=== PATIENT | male | born 1985 | race Caucasian/White ===

== ENCOUNTER 2018-07-16 15:07 | Inpatient (IN) | payer BC ==
[~2018-07-16] VITALS: Ht 170.2 cm; Wt 97.5 kg
--- OUTSIDE RECORDS SUMMARY | 2018-07-16 15:08 | XMS REPORT ---
Author [facility] Address Unknown Phone Unavailable Care Team Providers Care Automobile Detailer Name Role Phone Cheyenne NINA Unavailable Unavailable Problems This patient has no known problems. Allergies, Adverse Reactions, Alerts This patient has no known allergies or adverse reactions. Medications This patient has no known medications. Results Test Description Test Time Test Comments Text Results Atomic Results Result Comments CT ABDOMEN/PELVIS W [place] [id number] Patient Name: HARRISON RIOJAS MR #: [id number] : 1985 Age/Sex: 32/M Req #: [id number] Adm Physician: Ordered by: JAMES HARRIS Report #: [id number] Location: ER Room/Bed: Procedure: [id number] CT/CT ABDOMEN/PELVIS W Exam Date: Exam Time: REPORT STATUS: Signed EXAM: CT ABDOMEN/PELVIS W DATE: 04/20/2017 8:38 PM INDICATION: Pain COMPARISON: None TECHNIQUE: The abdomen and pelvis were scanned using a multidetector helical scanner. Coronal and sagittal reformations were obtained. Routine protocol performed. IV Contrast: 100 ml Isovue 370 FINDINGS: LOWER THORAX: No consolidations LIVER/BILIARY: Hepatic steatosis. No ductal dilatation. GALLBLADDER/SPLEEN/PANCREAS: Unremarkable ADRENALS: No nodules KIDNEYS: Symmetric perfusion. No enhancing masses. No hydronephrosis. GI TRACT: No distention, wall thickening or evidence of obstruction. Normal appendix. VESSELS: Unremarkable PERITONEUM/RETROPERITONEUM: No free air or fluid LYMPH NODES: No lymphadenopathy REPRODUCTIVE ORGANS/BLADDER: Unremarkable SOFT TISSUES: Unremarkable BONES: No suspicious bone lesions. IMPRESSION: No acute abnormality. Signed by: Dr Stella Garcia MD on 04/20/2017 10:32 PM Dictated By: STELLA GARCIA MD 31 Transcribed By: MARCE on 04/20/172231 COPY TO: JAMES HARRIS CHEST SINGLE (NOT PORTABLE) [place] [address] Patient Name: HARRISON RIOJAS MR #: [id number] : 1985 Age/Sex: 32/M Req #: [id number] Adm Physician: Ordered by: MANDA KEN MD Report #: [id number] Location: ER Room/Bed: Procedure: [id number] DX/CHEST SINGLE (NOT PORTABLE) Exam Date: 04/20/17 Exam Time: 1811 REPORT STATUS: Signed PROCEDURE: A single AP view of the chest. COMPARISON: [facility], DX, CHEST SINGLE, 09/15/2008, 2:28. INDICATIONS: SHORT OF BREATH FINDINGS: Lines/tubes: None. Lungs: 1.0 cm nodular density with central lucency projected on the right lung base laterally. A similar nodular density also projected on the right mid lung and right apex. There is no evidence of pneumonia or pulmonary edema. Pleura: There is no pleural effusion or pneumothorax. Heart and mediastinum: The heart and the mediastinum are unremarkable. Bones: No acute bony abnormality. IMPRESSION: 1. No acute cardiopulmonary disease. 2. 3 similar appearing nodular densities with central lucency projected on the right lung may represent artifact. Recommend further evaluation with lateral view, or if warranted, CT chest to exclude cavitating nodules. Marita Valle M.D. Dictated by: Marita Valle M.D. on 04/20/2017 at 18:43 Electronically approved by: Marita Valle M.D. on 04/20/2017 at 18:43 Dictated By: JUAN VALLE MD, MD 42 Transcribed By: SEEMA on 04/20/171842 COPY TO: MANDA KEN MD
[2018-07-16] MEDS ORDERED: SODIUM CHLORIDE 0.9% 1000ML 1,000 ML IV STA (15:40)
[2018-07-16] MEDS ORDERED: FENTANYL CITRATE/PF 100MCG/2 ML INJ IV NR (15:45)
[2018-07-16] MEDS ORDERED: SODIUM CHLORIDE 0.9% 1000ML 1,000 ML IV SCH ×2 (15:45→18:47)
[2018-07-16] MEDS ORDERED: ONDANSETRON HCL INJ 2 MG/ML VIAL IV NR (16:00)
[2018-07-16 16:54] LABS: BASOPHILS # (AUTO) 0.1 (0.0-0.1); BASOPHILS % 0.2 % (0.0-1.0); HEMATOCRIT 45.3 % (38.2-49.6); HEMOGLOBIN 15.8 g/dL (14.0-18.0); LYMPHOCYTES # (AUTO) 0.7 (1.0-3.2); LYMPHOCYTES % 2.7 % (18.0-39.1); MEAN CORPUSCULAR HGB CONC 34.9 g/dL (31-35); MONOCYTES # (AUTO) 1.6 (0.2-0.8); MONOCYTES % 6.4 % (4.4-11.3); NEUTROPHILS # (AUTO) 22.3 (2.1-6.9); NEUTROPHILS % 89.6 % (38.7-80.0); PLATELET COUNT 164 x10e3/uL (140-360); RED BLOOD COUNT 5.09 x10e6/uL (4.3-5.7); RED CELL DISTRIBUTION WIDTH 13.3 % (11.7-14.4)
--- NOTE | 2018-07-16 17:05 | NUR ---
FENTANYL AND ZOFRAN HELD UNTIL ROOM IS AVAILABLE
[2018-07-16] MEDS ORDERED: SODIUM CHLORIDE 0.9% 50ML 50 ML ONE (17:13)
[2018-07-16] MEDS ORDERED: IOPAMIDOL 370 MG/ML 200 ML INFUS..BTL INJ ONE (17:13)
[2018-07-16 17:17] LABS: ALANINE AMINOTRANSFERASE 27 IU/L (0-55); ALBUMIN 3.8 g/dL (3.5-5.0); ALBUMIN/GLOBULIN RATIO 1.2 (0.8-2.0); ALKALINE PHOSPHATASE 64 IU/L (40-150); BLOOD UREA NITROGEN 12 mg/dL (7-26); BUN/CREATININE RATIO 13 (6-25); CARBON DIOXIDE 22 mmol/L (22-29); CHLORIDE 96 mmol/L (98-107); CREATININE, SERUM 0.93 mg/dL (0.72-1.25); EST GLOMERULAR FILTRATION RATE > 60 ML/MIN (60-); GLUCOSE 154 mg/dL (74-118); SODIUM 131 mmol/L (136-145)
[2018-07-16 17:29] LABS: MAGNESIUM 1.9 MG/DL (1.3-2.1)
[2018-07-16] MEDS ORDERED: PIPER-TAZ 3.375 GM 50 ML IV NR (17:30)
[2018-07-16 17:50] LABS: INR 1.13; PROTHROMBIN TIME 15.5 seconds (11.9-14.5)
[2018-07-16] MEDS ORDERED: DESFLURANE 240 ML BTL INH ONE (17:57)
[2018-07-16] MEDS ORDERED: GLYCOPYRROLATE INJ 1MG/ 5 ML SYR ONE (17:57)
[2018-07-16] MEDS ORDERED: ACETAMINOPHEN 1000 MG/100 ML IV ONE (17:57)
[2018-07-16] MEDS ORDERED: ONDANSETRON HCL INJ 2 MG/ML VIAL ONE (17:57)
[2018-07-16] MEDS ORDERED: NEOSTIGMINE 5 MG/5ML SYR ONE (17:57)
[2018-07-16] MEDS ORDERED: SUCCINYLCHOLINE 200 MG/10 ML SYR ONE (17:57)
[2018-07-16] MEDS ORDERED: DEXAMETHASONE SOD PHOS INJ 4 MG/ML VIAL ONE (17:57)
[2018-07-16] MEDS ORDERED: LIDOCAINE HCL 2% LOCAL INJ 5 ML SDV VIAL INJ ONE (17:57)
[2018-07-16] MEDS ORDERED: PROPOFOL IV EMULSION 10 MG/ML 20 ML VIAL ONE (17:57)
[2018-07-16] MEDS ORDERED: ROCURONIUM BROMIDE 10 MG/ML 5ML VIAL ONE (17:57)
[2018-07-16 18:22] LABS: CLARITY,URINE HAZY (CLEAR); COLOR,URINE AMBER (YELLOW)
[2018-07-16 18:23] LABS: BILIRUBIN,URINE 1+ (NEGATIVE); KETONES,URINE TRACE (NEGATIVE); LEUKOCYTE ESTERASE ,URINE NEGATIVE (NEGATIVE); NITRITE,URINE POSITIVE (NEGATIVE); PROTEIN,URINE DIPSTICK 2+ (NEGATIVE); URINE UROBILINOGEN 1 mg/dL (0.2 - 1)
[2018-07-16 18:28] LABS: BACTERIA,URINE MODERATE /HPF; RBC,URINE 0-5 /HPF (0-5)
[2018-07-16 18:29] LABS: EPITHELIAL CELLS,URINE FEW /LPF
--- NOTE | 2018-07-16 18:30 | Diagnostic Imaging Report ---
EXAM: CT Abdomen and Pelvis WITH contrast INDICATION: ^RLQ pain x 2 days. Concern for Appendicitis ^[id number] ^1747 COMPARISON: None. TECHNIQUE: Abdomen and pelvis were scanned utilizing a multidetector helical scanner from the lung base to the pubic symphysis after administration of IV contrast. Coronal and sagittal reformations were obtained. Routine protocol was performed. Scan was performed when during portal venous phase. IV CONTRAST: 100 mL of Isovue-370 ORAL CONTRAST: Water RADIATION DOSE: Total DLP: 727.5 mGy*cm Estimated effective dose: (DLP x 0.015 x size factor) mSv COMPLICATIONS: None FINDINGS: LINES and TUBES: None. LOWER THORAX: Unremarkable HEPATOBILIARY: No focal hepatic lesions. No biliary ductal dilation. GALLBLADDER: No radio-opaque stones or sludge. No wall thickening. SPLEEN: No splenomegaly. PANCREAS: No focal masses or ductal dilatation. ADRENALS: No adrenal nodules KIDNEYS/URETERS: Kidneys enhance symmetrically. No hydronephrosis. No cystic or solid mass lesions. No stones. GI TRACT: No abnormal distention, wall thickening, or evidence of bowel obstruction. The appendix is severely dilated, measuring 1.4 cm in diameter, filled with hyperdense material, and associated with wall enhancement and thickening. Extensive surrounding fat stranding with multiple air foci. No well-formed abscess or fluid collections. There is inflammatory changes of the adjacent small bowel. PELVIC ORGANS/BLADDER: Unremarkable. LYMPH NODES: No lymphadenopathy. VESSELS: Unremarkable. PERITONEUM / RETROPERITONEUM: No free air or fluid. BONES: Unremarkable. SOFT TISSUES: Unremarkable. IMPRESSION: Acute perforated appendicitis. No well formed abscess or surrounding fluid collections. These findings were communicated to Dr Roche on 07/16/2018 at 6:25 PM. Signed by: Dr. Shellie Barnes M.D. on 07/16/2018 6:26 PM
[2018-07-16 18:31] LABS: MUCUS,URINE MODERATE (RARE); TRANSITIONAL EPI CELLS,URINE FEW
--- NOTE | 2018-07-16 18:44 | NUR ---
MEDS GIVEN PER DR'S ORDERS AND PT HAS TOLERATED WELL
[2018-07-16 19:06] LABS: BAND NEUTROPHILS % (MANUAL) 3 %; LYMPHOCYTES % (MANUAL) 4 % (19-48); MONOCYTES % (MANUAL) 4 % (3.4-9.0); NEUTROPHILS % (MANUAL) 89 % (40-74)
[2018-07-16 19:07] LABS: PLATELET ESTIMATE ADEQUATE; PLATELET MORPHOLOGY COMMENT NORMAL; RBC MORPHOLOGY COMMENT NORMAL
[2018-07-16] MEDS ORDERED: FENTANYL CITRATE/PF 100MCG/2 ML INJ ONE (19:21)
[2018-07-16] MEDS ORDERED: MIDAZOLAM HCL 2 MG/2 ML VIAL ONE (19:22)
[2018-07-16] MEDS ORDERED: BUPIVACAINE 0.25%/EPI 30ML SDV INJ ONE (19:37)
--- NOTE | 2018-07-16 19:50 | NUR ---
OR TEAM IN ROOM WITH DR. BAE AT THIS TIME TO TAKE THE PT. TO THE O.R.
[2018-07-16] MEDS ORDERED: PIPER-TAZ 3.375 GM / NS 50ML IV SCH (22:00)
--- NOTE | 2018-07-16 22:14 | Operative Report ---
DATE OF PROCEDURE: July 16, 2018 PREOPERATIVE DIAGNOSIS: Ruptured appendicitis. POSTOPERATIVE DIAGNOSIS: Perforated retrocecal appendicitis. OPERATIVE PROCEDURE: Laparoscopy appendectomy. PROJECTION ENGINEER: None. ANESTHESIA: General endotracheal, Dr. Elliott. INDICATIONS FOR SURGERY: A 33-year-old male with 2-day history of pain in right lower quadrant with fevers and nausea, vomiting. CT scan showed evidence of appendicitis with rupture near the neck. Patient consented for laparoscopic appendectomy. Attendant risks discussed. PROCEDURE FINDINGS: Retrocecal perforated appendicitis near the neck. DESCRIPTION OF PROCEDURE: The patient brought to the OR intubated. Abdomen prepped with alcohol and draped in sterile fashion. Infraumbilical incision was made and a 12-mm port inserted. Insufflation begun under direct vision. Other port sites placed in the suprapubic, right upper quadrant, and right lower quadrant. The appendix was identified in the retrocecal area. During mobilization, there was evidence of perforation near the neck with spillage of fecal material. We proceeded to contain the perforation and contamination using Ray-Doni gauze and suctioning all fecal matter. The cecum was mobilized medially by dividing the white line of Toldt keeping in mind the terminal ileum and ileocecal bowel. Using the Endo DEVIKA stapler vascular load, the neck of the appendix was transected, flushed to the base of the cecum with 2 firings of the stapler to control the neck of the appendix. The appendix placed in Endopouch and retrieved out the peritoneal cavity. Copious saline was used for irrigation, Hemostasis achieved. A 19-Martiniquais Riaz drain placed in the retrocecal area and taken out through the suprapubic port site. All ports removed under direct vision. I failed to mention that the omentum was brought over to cover the retrocecal area and stitched in place with 3-0 Vicryl stitch. The fascia was then closed with 0-Vicryl. Skin closed with subcuticular stitch. Patient extubated, transported to the recovery room. Estimated blood loss was 20 mL. Job#: [id number] CQ
[2018-07-16 22:48] VITALS: BP 101/57
[2018-07-16] MEDS: LACTATED RINGER'S 1,000 ML IV SCH (23:15)
[2018-07-16] MEDS ORDERED: ACETAMINOPHEN 325 MG TAB PO PRN (23:15)
[2018-07-16] MEDS: PIPER-TAZ 3.375 GM / NS 50ML IV SCH (23:50)
[2018-07-16 23:53] VITALS: BP 101/57
--- NOTE | 2018-07-16 23:54 | Consultation ---
DATE OF CONSULTATION: July 16, 2018 CHIEF COMPLAINT: Abdominal pain. HISTORY OF PRESENT ILLNESS: This patient is 33-year-old male with 2-day history of pain in lower abdomen with nausea, vomiting, and fevers. No diarrhea. No previous episode. PAST MEDICAL HISTORY: Negative. PAST SURGICAL HISTORY: He has no previous surgery. ALLERGIES: He has no drugs allergy. SOCIAL HABITS: He does not smoke or drink. REVIEW OF SYSTEMS: No cough, chest pain, or shortness of breath. PHYSICAL EXAMINATION: VITAL SIGNS: Stable. Temperature 99.3. GENERAL: He is awake, alert, in moderate discomfort. HEENT: Sclerae anicteric. NECK: Supple. LUNGS: Clear. HEART: Regular rate and rhythm. ABDOMEN: Soft with tenderness and guarding in the right lower quadrant with rebound. LABORATORY DATA: White cell count is 24,000, hemoglobin of 15, creatinine of 0.9. CT of the abdomen showed acute perforated appendicitis. ASSESSMENT: Ruptured appendicitis. PLAN: Laparoscopic appendectomy. Attendant risks discussed. Job#: [id number]
[2018-07-17] VITALS (9 sets, daily range): BP systolic 88–133; BP diastolic 55–65
--- NOTE | 2018-07-17 00:16 | NUR ---
Received patient from OR to room 107 at 2234, following an lap appy. x4 trocar sites c/d/i, and tip drain intact. bazzi in place, draining dee urine. AAOX3, breathing even and unlabored on RA. pain to abd 3/10, denies need for pain medication at this time. IVF infusing @ 150 to right AC 18g . admission complete. Spoke to Dr. Bustos, new orders received and implemented. no needs voiced at this time. bed locked and in lowest position, call light within easy reach. will continue to monitor the patient closely.
[2018-07-17] MEDS: PIPER-TAZ 3.375 GM / NS 50ML IV SCH ×3 (05:03→18:00)
[2018-07-17] MEDS: LACTATED RINGER'S 1,000 ML IV SCH ×4 (05:03→21:05)
--- NOTE | 2018-07-17 06:30 | NUR ---
bazzi cath removed at this time, patient tolerated well. dtv
[2018-07-17] MEDS: MORPHINE SULFATE INJ 4 MG/ML INJ 1ML IV PRN ×3 (06:48→19:40)
--- NOTE | 2018-07-17 09:40 | NUR ---
MD Angie COLBERT INTO SEE PT, DISCUSSED POC, MADE AWARE OF LOW BP
--- NOTE | 2018-07-17 10:00 | NUR ---
PT OOB TO BR, VOIDED SMALL AMOUNT, CHELSIE NOTED TO BE LEAKING, DRESSING REMOVED AND NEW PRESSURE DRESSING APPLIED, PT TOLERATED WELL, PT C/O PAIN DUE TO CHELSIE PULLING ON HIME, CHELSIE SAFETY PINNED TO LINDSAY, CALL LIGHT WITHIN REACH Addendum: 07/17/18 at 1009 by Traci Chu RN BP RECHECKED 99/56, 100.1
[2018-07-17] MEDS: METRONIDAZOLE 500MG/NS 100ML 100 ML IV SCH ×2 (14:35→21:02)
--- NOTE | 2018-07-17 14:36 | NUR ---
WITH STANDBY ASSIST, PT AMBULATED TO BR, VOIDED 300ML, STANDBY ASSIST TO SIT ON SIDE OF BED, CALL LIGHT WITHIN REACH, FAMILY AT SIDE
[2018-07-17] MEDS: ONDANSETRON HCL INJ 2 MG/ML VIAL IV PRN ×2 (15:30→19:40)
--- NOTE | 2018-07-17 18:40 | NUR ---
AMBULATING IN HALLWAY, STEADY GAIT
--- NOTE | 2018-07-17 19:10 | NUR ---
WALKING ROUNDS PERFORMED, RECEIVED PT AMBULATING IN ROOM, PT IS AAOX3, RR EVEN AND NON-LABORED, ON RA. PT REPORTS AMBULATING INCREASING PT PAIN. LEFT PT SITTING ON SIDE OF BED, BED IN LOW LOCKED POSITION, SIDE RAILS UPX2, CALL LIGHT AND PHONE WITHIN REACH. FAMILY AT BEDSIDE.
--- NOTE | 2018-07-17 22:16 | NUR ---
PT AMBULATING IN HAMM WITH FAMILY AT SIDE. STEADY GAIT NOTED. PT AMBULATED 300FT.
[2018-07-18] VITALS (8 sets, daily range): BP systolic 103–141; BP diastolic 58–81
[2018-07-18] MEDS: PIPER-TAZ 3.375 GM / NS 50ML IV SCH ×5 (00:35→23:19)
[2018-07-18] MEDS: LACTATED RINGER'S 1,000 ML IV SCH ×4 (01:55→21:55)
[2018-07-18] MEDS: METRONIDAZOLE 500MG/NS 100ML 100 ML IV SCH ×4 (02:48→20:26)
[2018-07-18] MEDS: ONDANSETRON HCL INJ 2 MG/ML VIAL IV PRN (02:59)
[2018-07-18] MEDS: MORPHINE SULFATE INJ 4 MG/ML INJ 1ML IV PRN (02:59)
[2018-07-18 06:00] LABS: BASOPHILS % 0.2 % (0.0-1.0); EOSINOPHILS # (AUTO) 0.1 (0.0-0.4); EOSINOPHILS % 0.4 % (0.0-6.0); HEMATOCRIT 35.2 % (38.2-49.6); HEMOGLOBIN 11.9 g/dL (14.0-18.0); LYMPHOCYTES # (AUTO) 1.3 (1.0-3.2); LYMPHOCYTES % 11.2 % (18.0-39.1); MEAN CORPUSCULAR HGB CONC 33.8 g/dL (31-35); MEAN CORPUSCULAR VOLUME 91.7 fL (81-99); MONOCYTES # (AUTO) 1.2 (0.2-0.8); MONOCYTES % 10.4 % (4.4-11.3); NEUTROPHILS # (AUTO) 9.2 (2.1-6.9); NEUTROPHILS % 77.3 % (38.7-80.0); PLATELET COUNT 149 x10e3/uL (140-360); RED BLOOD COUNT 3.84 x10e6/uL (4.3-5.7); RED CELL DISTRIBUTION WIDTH 13.6 % (11.7-14.4)
[2018-07-18 06:19] LABS: ANION GAP 12.1 mmol/L (8-16); BLOOD UREA NITROGEN 7 mg/dL (7-26); BUN/CREATININE RATIO 8 (6-25); CALCIUM 8.5 mg/dL (8.4-10.2); CARBON DIOXIDE 26 mmol/L (22-29); CHLORIDE 102 mmol/L (98-107); CREATININE, SERUM 0.92 mg/dL (0.72-1.25); EST GLOMERULAR FILTRATION RATE > 60 ML/MIN (60-); GLUCOSE 97 mg/dL (74-118); POTASSIUM 4.1 mmol/L (3.5-5.1); SODIUM 136 mmol/L (136-145)
--- NOTE | 2018-07-18 09:00 | NUR ---
AMBULATING IN HALLWAY, STEADY GAIT, FAMILY AT SIDE
[2018-07-18] MEDS: DOCUSATE SODIUM 100 MG CAP PO SCH ×2 (09:03→20:26)
--- NOTE | 2018-07-18 11:00 | NUR ---
NEW 20G TO LEFT HAND, PT TOLERATED WELL
--- NOTE | 2018-07-18 13:28 | NUR ---
AMBULATING IN HALLWAY, STEADY GAIT, FAMILY AT SIDE
[2018-07-18] MEDS: HYDROCODONE/APAP 7.5MG-325MG 1 EA TAB PO PRN ×2 (17:32→23:19)
--- NOTE | 2018-07-18 19:10 | NUR ---
WALKING ROUNDS PERFORMED, RECEIVED PT LAYING SEMI FOWLERS IN BED, AAOX3, RR EVEN AND NON-LABORED, ON RA. NO S/SX OF DISTRESS NOTED. LEFT PT LAYING SEMI FOWLERS IN BED, BED IN LOW LOCKED POSITION, SIDE RAILS UPX2, CALL LIGHT AND PHONE WITHIN REACH.
--- NOTE | 2018-07-18 20:00 | NUR ---
PT AMBULATING IN HAMM WITH FAMILY AT SIDE. STEADY GAIT NOTED.
[2018-07-19] VITALS (7 sets, daily range): BP systolic 124–144; BP diastolic 71–86
[2018-07-19] MEDS: LACTATED RINGER'S 1,000 ML IV SCH ×4 (02:00→21:18)
[2018-07-19] MEDS: METRONIDAZOLE 500MG/NS 100ML 100 ML IV SCH ×4 (02:54→20:45)
[2018-07-19 05:54] LABS: BASOPHILS % 0.4 % (0.0-1.0); EOSINOPHILS # (AUTO) 0.1 (0.0-0.4); EOSINOPHILS % 0.9 % (0.0-6.0); HEMATOCRIT 34.3 % (38.2-49.6); HEMOGLOBIN 11.7 g/dL (14.0-18.0); LYMPHOCYTES # (AUTO) 1.7 (1.0-3.2); LYMPHOCYTES % 16.4 % (18.0-39.1); MEAN CORPUSCULAR HEMOGLOBIN 30.7 pg (28-32); MEAN CORPUSCULAR HGB CONC 34.1 g/dL (31-35); MONOCYTES % 9.8 % (4.4-11.3); NEUTROPHILS # (AUTO) 7.3 (2.1-6.9); NEUTROPHILS % 71.7 % (38.7-80.0); PLATELET COUNT 167 x10e3/uL (140-360); RED BLOOD COUNT 3.81 x10e6/uL (4.3-5.7); RED CELL DISTRIBUTION WIDTH 13.5 % (11.7-14.4)
[2018-07-19] MEDS: PIPER-TAZ 3.375 GM / NS 50ML IV SCH ×4 (06:08→23:30)
[2018-07-19] MEDS: HYDROCODONE/APAP 7.5MG-325MG 1 EA TAB PO PRN ×4 (06:22→21:15)
[2018-07-19] MEDS: DOCUSATE SODIUM 100 MG CAP PO SCH ×2 (09:29→21:00)
[2018-07-19] MEDS: ONDANSETRON HCL INJ 2 MG/ML VIAL IV PRN (17:09)
[2018-07-20] VITALS (7 sets, daily range): BP systolic 123–144; BP diastolic 65–84
[2018-07-20] MEDS: METRONIDAZOLE 500MG/NS 100ML 100 ML IV SCH ×4 (02:15→21:00)
[2018-07-20] MEDS: HYDROCODONE/APAP 7.5MG-325MG 1 EA TAB PO PRN ×4 (03:00→23:43)
[2018-07-20] MEDS: PIPER-TAZ 3.375 GM / NS 50ML IV SCH ×4 (05:19→23:35)
[2018-07-20 05:54] LABS: BASOPHILS # (AUTO) 0.1 (0.0-0.1); BASOPHILS % 0.5 % (0.0-1.0); EOSINOPHILS # (AUTO) 0.2 (0.0-0.4); EOSINOPHILS % 1.4 % (0.0-6.0); HEMATOCRIT 35.8 % (38.2-49.6); HEMOGLOBIN 12.3 g/dL (14.0-18.0); LYMPHOCYTES # (AUTO) 2.4 (1.0-3.2); LYMPHOCYTES % 19.5 % (18.0-39.1); MEAN CORPUSCULAR HEMOGLOBIN 30.9 pg (28-32); MEAN CORPUSCULAR HGB CONC 34.4 g/dL (31-35); MEAN CORPUSCULAR VOLUME 89.9 fL (81-99); MONOCYTES # (AUTO) 1.3 (0.2-0.8); MONOCYTES % 10.6 % (4.4-11.3); NEUTROPHILS # (AUTO) 8.3 (2.1-6.9); NEUTROPHILS % 66.5 % (38.7-80.0); PLATELET COUNT 217 x10e3/uL (140-360); RED BLOOD COUNT 3.98 x10e6/uL (4.3-5.7); RED CELL DISTRIBUTION WIDTH 13.2 % (11.7-14.4)
[2018-07-20 06:16] LABS: ANION GAP 14.4 mmol/L (8-16); BLOOD UREA NITROGEN 6 mg/dL (7-26); BUN/CREATININE RATIO 7 (6-25); CALCIUM 8.5 mg/dL (8.4-10.2); CARBON DIOXIDE 25 mmol/L (22-29); CHLORIDE 99 mmol/L (98-107); CREATININE, SERUM 0.91 mg/dL (0.72-1.25); EST GLOMERULAR FILTRATION RATE > 60 ML/MIN (60-); GLUCOSE 85 mg/dL (74-118); POTASSIUM 3.4 mmol/L (3.5-5.1); SODIUM 135 mmol/L (136-145)
[2018-07-20] MEDS: DOCUSATE SODIUM 100 MG CAP PO SCH ×2 (07:54→21:00)
[2018-07-20 10:12] LABS: EOSINOPHILS % (MANUAL) 2 % (0-7); LYMPHOCYTES % (MANUAL) 17 % (19-48); METAMYELOCYTES % (MANUAL) 1 % (0-0); MONOCYTES % (MANUAL) 8 % (3.4-9.0); MYELOCYTES % (MANUAL) 1 % (0-0); NEUTROPHILS % (MANUAL) 64 % (40-74)
[2018-07-20 10:13] LABS: PLATELET ESTIMATE ADEQUATE; PLATELET MORPHOLOGY COMMENT NORMAL; RBC MORPHOLOGY COMMENT NORMAL
[2018-07-20] MEDS ORDERED: POTASSIUM CHLORIDE 10MEQ EA PO ONE (11:00)
[2018-07-20] MEDS: LACTATED RINGER'S 1,000 ML IV SCH (13:39)
[2018-07-21 00:25] VITALS: BP 141/79
[2018-07-21] MEDS: METRONIDAZOLE 500MG/NS 100ML 100 ML IV SCH ×2 (02:44→09:32)
[2018-07-21 04:00] VITALS: BP_SYST 142; BP_SYST 175; BP_DIAS 74; BP_DIAS 92
[2018-07-21 06:05] LABS: BASOPHILS # (AUTO) 0.1 (0.0-0.1); BASOPHILS % 0.7 % (0.0-1.0); EOSINOPHILS # (AUTO) 0.2 (0.0-0.4); EOSINOPHILS % 1.5 % (0.0-6.0); HEMATOCRIT 37.2 % (38.2-49.6); HEMOGLOBIN 12.9 g/dL (14.0-18.0); LYMPHOCYTES % 16.4 % (18.0-39.1); MEAN CORPUSCULAR HEMOGLOBIN 30.4 pg (28-32); MEAN CORPUSCULAR HGB CONC 34.7 g/dL (31-35); MEAN CORPUSCULAR VOLUME 87.5 fL (81-99); MONOCYTES # (AUTO) 1.2 (0.2-0.8); MONOCYTES % 10.3 % (4.4-11.3); NEUTROPHILS # (AUTO) 8.2 (2.1-6.9); NEUTROPHILS % 67.6 % (38.7-80.0); PLATELET COUNT 242 x10e3/uL (140-360); RED BLOOD COUNT 4.25 x10e6/uL (4.3-5.7); RED CELL DISTRIBUTION WIDTH 13.2 % (11.7-14.4)
[2018-07-21] MEDS: PIPER-TAZ 3.375 GM / NS 50ML IV SCH (06:12)
[2018-07-21 06:26] LABS: ANION GAP 13.5 mmol/L (8-16); BLOOD UREA NITROGEN < 5 mg/dL (7-26); CALCIUM 8.3 mg/dL (8.4-10.2); CARBON DIOXIDE 24 mmol/L (22-29); CHLORIDE 102 mmol/L (98-107); CREATININE, SERUM 0.81 mg/dL (0.72-1.25); EST GLOMERULAR FILTRATION RATE > 60 ML/MIN (60-); GLUCOSE 94 mg/dL (74-118); POTASSIUM 3.5 mmol/L (3.5-5.1); SODIUM 136 mmol/L (136-145)
[2018-07-21 06:30] LABS: BUN/CREATININE RATIO 6 (6-25)
--- NOTE | 2018-07-21 07:02 | NUR ---
Received patient mid fowlers position, side rails upx2, call light within reach, family member at bedside. AAOx3 to time, person, place. Respirations even and unlabored. Instructed patient to use call light for assistance. Voiced understanding. Will continue to monitor.
[2018-07-21 08:56] VITALS: BP 142/83
[2018-07-21] MEDS: DOCUSATE SODIUM 100 MG CAP PO SCH (09:32)
[2018-07-21 09:35] VITALS: BP 142/83
[2018-07-21] MEDS: HYDROCODONE/APAP 7.5MG-325MG 1 EA TAB PO PRN (09:35)
[2018-07-21] MEDS ORDERED: METRONIDAZOLE500 MG PO (11:06)
[2018-07-21] MEDS ORDERED: AUGMENTIN 875-1 EACH PO (11:06)
--- NOTE | 2018-07-21 11:18 | NUR ---
aware of discharge. see orders
--- NOTE | 2018-07-21 11:30 | NUR ---
right abdomen CHELSIE drain removed. Tolerated well. Dry dressing placed. Tolerated well. Instructed patient Wound care orders. Voiced understanding and returned demonstration.
--- NOTE | 2018-07-21 12:59 | NUR ---
left FA IV discontinued. No signs of infiltration noted. 2x2 gauze and tape placed. Taken via wheelchair by PCT to personal car. AAOX4 to time, person,place ,situation. Respirations even and unlabored. Denies pain. Dressing to lower abdomen clean, dry, and intact. All personal belongings, rx, and discharge instructions taken with patient.
== END 2018-07-21 12:49 | disposition home or self-care (01) | DRG 853 ==
LOC: ER 15:07 → UNDOADMIN 19:04 → ERHOLD 19:04 → OR 19:39 → ERHOLD 22:42 → MED/SURG 22:43
PROC: 0DTJ4ZZ Resection of Appendix, Percutaneous Endoscopic Approach (ICD-10-PCS; principal; 2018-07-16 19:59)
DX: A41.9 Sepsis, unspecified organism (principal); K35.32 Acute appendicitis with perforation, localized peritonitis, and gangrene, without abscess; D64.9 Anemia, unspecified; F17.210 Nicotine dependence, cigarettes, uncomplicated; E66.9 Obesity, unspecified; Z68.33 Body mass index [BMI] 33.0-33.9, adult
CPT/HCPCS: 36415; 74177; 80048; 80053; 81001; 83605; 83735; 85025; 85610; 87040; 87071; 87205; 88304; 99284; J1100; J2001; J2250; J2270; J2405; J2543; J7030; J7120; Q9967

== ENCOUNTER → 2021-03-19 | Day surgery (SDC) | payer BC, OTHER ==
[~2021-03-19] MED LIST: AUGMENTIN 875-1 EACH PO; FAMOTIDINE20 MG PO; METRONIDAZOLE500 MG PO; PROTONIX20 MG PO
[2021-03-19 09:25] VITALS: BP 102/73
== END | disposition home or self-care (01) ==
LOC: OR 05:30
PROVIDERS: ATTEND Internal Medicine Gastroenterology
DX: K29.50 Unspecified chronic gastritis without bleeding (principal); R13.19 Other dysphagia; K31.89 Other diseases of stomach and duodenum; K21.9 Gastro-esophageal reflux disease without esophagitis; K59.00 Constipation, unspecified; Z01.812 Encounter for preprocedural laboratory examination; Z20.822 Contact with and (suspected) exposure to COVID-19; Z68.36 Body mass index [BMI] 36.0-36.9, adult; Z98.84 Bariatric surgery status; Z87.891 Personal history of nicotine dependence
CPT/HCPCS: 43239; 43450; C9113; U0002

== ENCOUNTER 2025-04-10 10:50 | Emergency (ER) | payer OTHER ==
[~2025-04-10] VITALS: Ht 170.2 cm; Wt 74.8 kg
[2025-04-10 11:02] VITALS: TEMP 98
[2025-04-10 11:56] LABS: BASOPHILS % 0.6 % (0.0-1.0); EOSINOPHILS % 2.1 % (0.0-6.0); LYMPHOCYTES % 17.0 % (18.0-39.1); MONOCYTES % 6.6 % (4.4-11.3); NEUTROPHILS % 73.2 % (38.7-80.0); RED CELL DISTRIBUTION WIDTH 13.2 % (11.7-14.4)
[2025-04-10 12:00] VITALS: PULSE 62; RESP 18
[2025-04-10 12:24] LABS: EST GLOMERULAR FILTRATION RATE 107.0 ML/MIN (>=60)
[2025-04-10 13:00] VITALS: BP 130/86; PULSE 62; RESP 18; O2SAT 97
== END 2025-04-10 14:18 | disposition home or self-care (01) ==
LOC: ER 10:58
DX: R42 Dizziness and giddiness (principal); R55 Syncope and collapse; Z98.84 Bariatric surgery status; F17.210 Nicotine dependence, cigarettes, uncomplicated
CPT/HCPCS: 36415; 70450; 80053; 84484; 85025; 93005; 99284